=== PATIENT | female | born 1965 | race Caucasian/White ===

== ENCOUNTER → 2016-12-06 | Outpatient (CLI) | payer OTHER ==
[~2016-12-06] MED LIST: AMB10 PO; CARB200T PO; CGN1 PO; OLAN5TAB3 PO; RMR15 PO; TOPI200T14
[2016-12-06 08:34] LABS: ALT/SGPT 23 U/L (12-78); BLOOD UREA NITROGEN 25 mg/dl (7-18); BUN/CREATININE RATIO 32.5 (10-20); CALCIUM 8.7 mg/dl (8.5-10.1); CARBON DIOXIDE 22 mmol/L (21-32); CHLORIDE 112 mmol/L (98-107); CREATININE 0.76 mg/dl (0.60-1.20); GLUCOSE 73 mg/dl (70-99); POTASSIUM 4.3 mmol/L (3.5-5.1); SODIUM 143 mmol/L (136-145)
[2016-12-06 08:36] LABS: ALB/GLOB RATIO 0.8 (0.9-2); ALKALINE PHOSPHATASE 138 U/L (45-117); AST/SGOT 21 U/L (15-37)
[2016-12-06 08:48] LABS: BASO % 0.3 %; BASO ABS # 0.02 K/uL (0-0.2); COMPLETE YES; EOS % 1.8 %; HEMATOCRIT 43.3 % (37-47); IG% 0.3 %; LYMPH % 38.9 %; LYMPH ABS # 3.02 K/uL (1.2-3.4); MEAN CELL VOLUME 96.9 fL (80-100); MEAN CORPUSCULAR HEMOGLOBIN 32.4 pg (25-34); MEAN CORPUSCULAR HGB CONC 33.5 g/dl (32-36); MEAN PLATELET VOLUME 10.1 fL (7.4-10.4); MONO % 9.9 %; NEUT % 48.8 %; PLATELET COUNT 260 K/uL (130-400); RED BLOOD COUNT 4.47 M/uL (4.2-5.4); WHITE BLOOD COUNT 7.77 K/uL (4.8-10.8)
== END ==
LOC: C.LABCC 07:53
PROVIDERS: ATTEND Internal Medicine
DX: G40.909 Epilepsy, unspecified, not intractable, without status epilepticus (principal)

== ENCOUNTER → 2017-12-16 | Outpatient (CLI) | payer OTHER ==
[2017-12-16 10:48] LABS: BASO % 0.5 %; BASO ABS # 0.03 K/uL (0-0.2); EOS % 2.1 %; EOS ABS # 0.14 K/uL (0-0.5); HEMATOCRIT 41.9 % (37-47); HEMOGLOBIN 13.7 g/dL (12.0-16.0); IG# 0.02 K/uL (0.00-0.02); LYMPH % 36.5 %; LYMPH ABS # 2.38 K/uL (1.2-3.4); MEAN CELL VOLUME 101.2 fL (80-100); MEAN CORPUSCULAR HEMOGLOBIN 33.1 pg (25-34); MEAN CORPUSCULAR HGB CONC 32.7 g/dl (32-36); MEAN PLATELET VOLUME 10.1 fL (7.4-10.4); MONO % 8.9 %; MONO ABS # 0.58 K/uL (0.11-0.59); NEUT % 51.7 %; NEUT ABS # 3.37 K/uL (1.4-6.5); PLATELET COUNT 221 K/uL (130-400); RED CELL DISTRIBUTION WIDTH CV 13.3 % (11.5-14.5); RED CELL DISTRIBUTION WIDTH SD 49.1 fL (36.4-46.3); WHITE BLOOD COUNT 6.52 K/uL (4.8-10.8)
[2017-12-16 11:04] LABS: ALBUMIN 3.2 gm/dl (3.4-5.0); ALT/SGPT 22 U/L (12-78); BLOOD UREA NITROGEN 24 mg/dl (7-18); CALCIUM 8.1 mg/dl (8.5-10.1); CARBON DIOXIDE 23 mmol/L (21-32); CREATININE 0.53 mg/dl (0.60-1.20); GLUCOSE 72 mg/dl (70-99); POTASSIUM 3.8 mmol/L (3.5-5.1); SODIUM 144 mmol/L (136-145)
[2017-12-16 11:17] LABS: ALKALINE PHOSPHATASE 129 U/L (45-117); AST/SGOT 16 U/L (15-37); TOTAL PROTEIN 6.7 gm/dl (6.4-8.2)
== END ==
LOC: C.LABCC 08:40
PROVIDERS: ATTEND Internal Medicine
DX: G80.9 Cerebral palsy, unspecified (principal); F79 Unspecified intellectual disabilities; R56.9 Unspecified convulsions